=== PATIENT | female | born 1960 | race Two or more races ===

== ENCOUNTER 2024-07-20 06:34 | Inpatient (IN) | payer BC, OTHER ==
[~2024-07-20] VITALS: Ht 162.6 cm; Wt 60.1 kg
--- NOTE | 2024-07-20 06:51 | ED.PDOC ---
History of Present Illness HPI Comments 64-year-old female with no reported PMHx presents with a chief complaint of SOB, back pain, and right lateral chest pain. Patient states that starting at 0200 this morning she started to have an chest pain that began and started to have SOB. Patient denies any coughing or history of any respiratory ailments. Patient is actively vomiting in triage. Time Seen by MD: 06:42 Reviewed Notes: Medications, Allergies Allergies: Coded Allergies: Acetaminophen (Verified Allergy, Unknown, 07/20/24) Hydrocodone (Verified Allergy, Unknown, 07/20/24) Information Source: Patient Mode of Arrival: Ambulatory Severity: Moderate Timing: Hours Duration: Since onset Prehospital treatment: None Past Medical History PAST MEDICAL HISTORY: Denies Surgical History: Denies all surgeries FUEL MANAGEMENT HANDLER History: Denies all FUEL MANAGEMENT HANDLER Hx Family History Family History: Reviewed,noncontributory to illness Social History Smoker: Non-Smoker Alcohol: Denies ETOH Use Drugs: Denies Drug Use Lives In: Home Constitutional: denies: chills, diaphoresis, fatigue, fever, malaise, sweats, weakness, others EENTM: denies: blurred vision, double vision, ear bleeding, ear discharge, ear drainage, ear pain, ear ringing, eye pain, eye redness, hearing loss, mouth pain, mouth swelling, nasal discharge, nose bleeding, nose congestion, nose pain, photophobia, tearing, throat pain, throat swelling, voice changes, others Respiratory: reports: shortness of breath; denies: cough, hemoptysis, orthopnea, SOB at rest, SOB with excertion, stridor, wheezing, others Cardiovascular: reports: chest pain; denies: dizzy spells, diaphoresis, Dyspnea on exertion, edema, irregular heart beat, left arm pain, lightheadedness, palpitations, PND, syncope, others Gastrointestinal: denies: abdomen distended, abdominal pain, blood streaked bowels, constipated, diarrhea, dysphagia, difficulty swallowing, hematemesis, melena, nausea, poor appetite, poor fluid intake, rectal bleeding, rectal pain, vomiting, others Genitourinary: denies: abnormal vagina bleeding, burning, dyspareunia, dysuria, flank pain, frequency, hematuria, incontinence, pain, , vagina discharge, urgency, others Neurological: denies: dizziness, fainting, headache, left sided numbness, left sided weakness, numbness, paresthesia, pre-existing deficit, right sided numbness, right sided weakness, seizure, speech problems, tingling, tremors, weakness, others Musculoskeletal: reports: back pain, muscle pain; denies: gout, joint pain, joint swelling, muscle stiffness, neck pain, others Integumetry: denies: bruises, change in color, change in hair/nails, dryness, laceration, lesions, lumps, rash, wounds, others Allergic/Immunocompromised: denies: Difficulty Healing, Frequent Infections, Hives, Itching, others Hematologic/Lymphatic: denies: anemia, blood clots, easy bleeding, easy bruising, swollen glands, others Endocrine: denies: excessive hunger, excessive sweating, excessive thirst, excessive urination, flushing, intolerance to cold, intolerance to heat, unexplained weight gain, unexplained weight loss, others Psychiatric: denies: anxiety, bipolar disorder, depression, hopeless, panic disorder, schizophrenia, sleepless, suicidal, others All Other Systems: Reviewed and Negative Physical Exam General Appearance: No Apparent Distress, Normal HEENT: Normal ENT Inspection, Pharynx Normal, TMs Normal Neck: Full Range of Motion, Non-Tender, Normal, Normal Inspection Respiratory: Chest Non-Tender, Lungs Clear, No Accessory Muscle Use, No Respiratory Distress, Normal Breath Sounds Cardiovascular: No Edema, No JVD, No Murmur, No Gallop, Normal Peripheral Pulses, Regular Rate/Rhythm Breast Exam: Deferred Gastrointestinal: No Organomegaly, Non Tender, No Pulsatile Mass, Normal Bowel Sounds, Soft Genitalia: Deferred Pelvic: Deferred Rectal: Deferred Extremities: No calf tenderness, Normal capillary refill, Normal inspection, Normal range of motion, Non-tender, No pedal edema Musculoskeletal : Apperance: Normal Neurologic: 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 Was a procedure done?: No Differential Dx Considerations may include: acs, pleurisy, chest wall pain, anxiety, pneumonia, PE, ptx, lung mass, aortic dissection, shingles X-Ray, Labs, Meds, VS Vital Signs Date Time Temp Pulse Resp B/P (MAP) Pulse Ox O2 Delivery O2 Flow Rate FiO2 07/20/24 07:35 75 22 100 Room Air* 0 21 07/20/24 07:35 98.1 75 22 169/86 (113) 100 98.1 07/20/24 06:58 97.5 78 22 147/73 (97) 100 97.5 07/20/24 06:54 79 Lab Test 07/20/24 08:10 07/20/24 07:05 Range/Units Troponin I High Sensitivity 4 4 </=34 ng/L White Blood Count 9.0 4.4-10.8 10^3/uL Red Blood Count 4.79 4.0-5.20 10^6/uL Hemoglobin 13.8 12.2-16.2 g/dL Hematocrit 39.7 36.0-46.0 % Mean Corpuscular Volume 82.9 80.0-100.0 fL Mean Corpuscular Hemoglobin 28.9 28.0-32.0 pg Mean Corpuscular Hemoglobin Concent 34.8 32.0-36.0 g/dL Red Cell Distribution Width 13.4 11.8-14.3 % Platelet Count 350 140-450 10^3/uL Mean Platelet Volume 8.6 6.9-10.8 fL Neutrophils (%) (Auto) 82.3 H 37.0-80.0 % Lymphocytes (%) (Auto) 13.9 10.0-50.0 % Monocytes (%) (Auto) 2.7 0.0-12.0 % Eosinophils (%) (Auto) 0.6 0.0-7.0 % Basophils (%) (Auto) 0.5 0.0-2.0 % Neutrophils # (Auto) 7.4 1.6-8.6 10 ^3/uL Lymphocytes # (Auto) 1.3 0.4-5.4 10 ^3/uL Monocytes # (Auto) 0.2 0-1.3 10 ^3/uL Eosinophils # (Auto) 0.1 0-0.8 10 ^3/uL Basophils # (Auto) 0 0-0.2 10 ^3/uL Nucleated Red Blood Cells 0.0 % Sodium Level 141 136-145 mmol/L Potassium Level 3.4 L 3.5-5.1 mmol/L Chloride Level 108 H 98-107 mmol/L Carbon Dioxide Level 21 20-31 mmol/L Anion Gap 12 5-15 Blood Urea Nitrogen 10 9-23 mg/dL Creatinine 0.73 0.550-1.02 mg/dL Glomerular Filtration Rate Calc 91 >90 mL/min BUN/Creatinine Ratio 13.7 10.0-20.0 Serum Glucose 133 H 74-106 mg/dL Calcium Level 9.5 8.7-10.4 mg/dL Total Bilirubin 1.1 H 0.2-1.0 mg/dL Aspartate Amino Transferase (AST) 20 <34 U/L Alanine Aminotransferase (ALT) 23 7-40 U/L Alkaline Phosphatase 59 46-116 U/L Total Protein 7.5 5.7-8.2 g/dL Albumin 5.0 H 3.2-4.8 g/dL Current Medications Medications (Trade) Dose Ordered Sig/Jana Route Start Time Stop Time Status Last Admin Ketorolac Tromethamine (Toradol Injection) 15 mg ONCE ONCE IV 07/20/24 08:00 07/20/24 08:04 DC 07/20/24 08:26 Time of 1ST Reevaluation: 07:12 Reevaluation 1ST: Unchanged Patient Education/Counseling: Diagnosis, Treatment, Prognosis, Need For Follow Up Family Education/Counseling: No Family Present Comments pt does not have pe on cta. she has no physical findings nor symptoms consistent with aortic dissection. although her cardiac workup is so far, unremarkable, unstable angina is not excluded. pt will need further evaluation and be admitted Departure 1 Departure Time of Disposition: 10:56 Impression: Primary Impression: Unstable angina Disposition: 09 ADMITTED INPATIENT Admit to: Tele Condition: Serious Discharged With: Self Critical Care Note Critical Care Time?: Yes (55 min-critical care time only) Critical care comment: due to concerns for deterioration of patient's condition, the care required my highest level of attention and readiness. i assessed the patient's condition, reviewed relevant documents, communicated with medical personnel, ordered the proper tests and treatments, reassessed for results and response to treatments, spoke to family and consultants and formulated a plan of care Stability Stability form required: No Heart Score Heart Score: Heart Score Response (Comments) Value History Moderate Suspicious 1 EKG Normal 0 Age >65 2 Risk Factors No known risk factors 0 Troponin Normal limit 0 Total 3 I personally scribed for KAREEM DYKES MD ([email or web address]) on 07/20/24 at 06:51. Electronically submitted by Gary Lujan ([email or web address]). KAREEM DYKES MD Jul 20, 2024 06:51
--- NOTE | 2024-07-20 06:56 | ECG ---
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
[2024-07-20] MEDS ORDERED: KETOROLAC TROMETH 30 MG/ML 1ML VIAL IM ONE (07:00)
[2024-07-20 07:33] LABS: Basophils # (auto) 0 10 ^3/uL (0-0.2); Basophils % (auto) 0.5 % (0.0-2.0); Eosinophils # (auto) 0.1 10 ^3/uL (0-0.8); Eosinophils % (auto) 0.6 % (0.0-7.0); Hematocrit 39.7 % (36.0-46.0); Hemoglobin 13.8 g/dL (12.2-16.2); Lymphocytes # (auto) 1.3 10 ^3/uL (0.4-5.4); Lymphocytes % (auto) 13.9 % (10.0-50.0); Mean Corpuscular Hemoglobin 28.9 pg (28.0-32.0); Mean Corpuscular Hgb Conc. 34.8 g/dL (32.0-36.0); Mean Corpuscular Volume 82.9 fL (80.0-100.0); Monocytes # (auto) 0.2 10 ^3/uL (0-1.3); Monocytes % (auto) 2.7 % (0.0-12.0); Neutrophils # (auto) 7.4 10 ^3/uL (1.6-8.6); Neutrophils % (auto) 82.3 % (37.0-80.0); Platelet Count (auto) 350 10^3/uL (140-450); Red Blood Cells 4.79 10^6/uL (4.0-5.20); Red Cell Distribution Width 13.4 % (11.8-14.3)
[2024-07-20 07:35] VITALS: PULSE 75; RESP 22; O2SAT 100
--- NOTE | 2024-07-20 07:40 | DVH ---
CHEST RADIOGRAPH Indication: cp Technique: Single frontal view of the chest was obtained Comparison: None FINDINGS: Lines and Tubes: None Lungs: No focal consolidation. Pleura: No effusion. No pneumothorax. Cardiomediastinal contours: Unremarkable Bones: No acute osseous abnormality. IMPRESSION: 1. No acute cardiopulmonary disease.
[2024-07-20 07:52] LABS: Alanine Aminotransferase 23 U/L (7-40); Alkaline Phosphatase 59 U/L (46-116); Anion Gap 12 (5-15); Aspartate Aminotransferase 20 U/L (<34); BUN/Creatinine Ratio 13.7 (10.0-20.0); Blood Urea Nitrogen 10 mg/dL (9-23); Calcium 9.5 mg/dL (8.7-10.4); Carbon Dioxide 21 mmol/L (20-31); Sodium 141 mmol/L (136-145); Total Protein 7.5 g/dL (5.7-8.2)
[2024-07-20 07:53] LABS: Bilirubin, Total 1.1 mg/dL (0.2-1.0); Chloride 108 mmol/L (98-107); Glucose 133 mg/dL (74-106); Potassium 3.4 mmol/L (3.5-5.1)
--- NOTE | 2024-07-20 08:14 | DVH ---
CLINICAL INFORMATION: Chest pain. TECHNIQUE: Grayscale sonographic imaging of the right upper quadrant of the abdomen was performed, a ssisted by color Doppler techniques. COMPARISON: None FINDINGS: The gallbladder wall measures 2.3 mm in thickness, within normal limits. No stones are s een. Negative reported sonographic flores's sign. The common bile duct measures 4.2 mm in diameter, within normal limits. The liver is normal in size and echotexture. No focal lesions. The pancreas is partly obscured, likely by bowel gas. The visualized portions appear normal. The right kidney measures 10.9 cm. There is no hydronephrosis. Right renal cortical echogenicity a nd cortical thickness are within normal limits. IMPRESSION: 1. No sonographic evidence of acute cholecystitis. 2. No acute findings are seen in the right upper abdomen.
[2024-07-20] MEDS: KETOROLAC TROMETH 30 MG/ML 1ML VIAL IV ONE ×2 (08:26→23:15)
[2024-07-20] MEDS: IOHEXOL 350 MG/ML 100ML IJ ONE (10:23)
--- NOTE | 2024-07-20 10:36 | DVH ---
CT CT ANGIO CHEST CONTRAST INDICATION: r/o pe EXAM DATE: 07/20/2024 10:04 AM COMPARISON: None RADIATION DOSE: CTDIvol: 8.88 mGy, DLP: 199.75 mGy*cm PROCEDURE: Helical CT angiographic images were obtained of the chest with intravenous contrast. Sagi ttal and coronal reconstructions as well as MIPS are provided. Maximum intensity projections performe d (MIPs) were performed for CTA. ADDITIONAL IMAGES / REFORMATS: None All CT scans at this medical facility are performed using dose modulation techniques as appropriate t o a performed exam including the following: Automated exposure control was utilized; adjustment of th e MA and/or KV according to patient size; and use of iterative reconstruction technique. FINDINGS: Bones: Scattered degenerative changes are noted in the visualized osseous structures. Visualized Abdomen: Normal. Chest Wall: Normal. Soft tissues: Normal. Mediastinum: Normal. Heart: Normal. Vessels: No filling defects in the visualized pulmonary arteries including the segmental and subsegme ntal pulmonary arteries. Lymph Nodes: Prominent right perihilar lymph nodes are likely reactive. Pleura: Normal. Airways: Normal. Lung: Normal. Other: None IMPRESSION: No pulmonary embolism in the visualized pulmonary arteries including the segmental and subsegmental p ulmonary arteries.
[2024-07-20] MEDS: ONDANSETRON HCL 4 MG/2 ML VIAL IV ONE (11:10)
[2024-07-20] MEDS: MORPHINE SULFATE INJ 2 MG/ml SYRG IV ONE (11:10)
[2024-07-20] MEDS: MORPHINE SULFATE 4 MG/ML SYR/VIAL IV ONE (11:10)
--- NOTE | 2024-07-20 13:58 | DVHHPRES ---
History of Present Illness Resident Creating Document: MARIELA ADAMS RESIDENT History of Present Illness Patient is a 64-year-old female with past medical history of seasonal bronchial asthma, osteoarthritis presented to the ED with a chief complaint of right upper back pain with vomiting since 2:00 a.m. prior to this admission. The patient stated that she woke up from the sleep due to sudden sharp upper back pain which was 10/10, radiates to the right chest under the breast fold without any aggravating and relieving factors and associated with sweating, shortness of breath and vomiting. The patient denied fever, chills, dizziness, blurred vision, abdominal pain, dysuria, hematuria or any change in bowel and bladder habit. 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 Patient was seen and examined on the bedside. She is alert oriented x3 and on room air. Complaint of dull aching pain in the right upper back which is now 5/10, localized and associated with nausea. Past Medical History Seasonal bronchial asthma, osteoarthritis Past Surgical History Fracture repaired in childhood Family History Hypertension runs in the family, sister was diagnosed with pancreatic cancer recently and Past Social History Lives with girlfriend Smoked marijuana for sleep, nonalcoholic and never tried any other drugs Review of Systems Constitutional: No: Fever, Chills, Sweats, Weakness, Malaise, Other Eyes: No: Pain, Vision change, Conjunctivae inflammation, Eyelid inflammation, Other, Redness ENT: No: Ear pain, Ear discharge, Nose pain, Nose discharge, Nose congestion, Mouth pain, Mouth swelling, Throat pain, Throat swelling, Other Respiratory: No: Cough, Dry, Shortness of breath, SOB with excertion, Wheezing, Hemoptysis, Pleuritic Pain, Sputum, Wheezing, Other Cardiovascular: No: Chest Pain, Palpitations, Orthopnea, Paroxysmal Noc. Dyspnea, Edema, Lt Headedness, Other Gastrointestinal: Nausea; No: Vomiting, Abdominal Pain, Diarrhea, Constipation, Melena, Hematochezia, Other Genitourinary: No Dysuria, No Frequency, No Incontinence, No Hematuria, No Retention, No Other Musculoskeletal: back pain; No: other, neck pain, shoulder pain, arm pain, hand pain, leg pain, foot pain Skin: No: Rash, Lesions, Jaundice, Bruising, Other Neurological: No: Weakness, Numbness, Incoordination, Change in speech, Confusion, Seizures, Other Allergies: Coded Allergies: Acetaminophen (Verified Allergy, Unknown, 07/20/24) Hydrocodone (Verified Allergy, Unknown, 07/20/24) Medications Current Medications Medications Dose Ordered Sig/Jana Route Start Time Stop Time Status Last Admin Dose Admin Nitroglycerin 0.4 mg Q5MINP PRN SL 07/20/24 14:00 UNV Morphine Sulfate 2 mg Q30M PRN IV 07/20/24 14:00 UNV Exam Vital Signs Vital Signs Date Time Temp Pulse Resp B/P (MAP) Pulse Ox O2 Delivery O2 Flow Rate FiO2 07/20/24 12:00 72 07/20/24 12:00 98.2 18 166/90 (115) 98 98.2 07/20/24 07:35 Room Air* 0 21 Exam Physical examination: General Appearance: Alert, Oriented X3, Cooperative, mild distress HEENT: Atraumatic, PERRLA, EOMI, Mucous membrane moist/pink Respiratory: Clear to auscultation, Normal air movement Cardiovascular: Regular rate, Normal S1, Normal S2, No murmurs, no chest wall tenderness Abdominal: Normal bowel sounds, Soft, No tenderness, No hepatospenomegaly, No masses Extremities: No clubbing, No cyanosis, No edema, Normal pulses, No tenderness/swelling Skin: No rashes, No breakdown, No significant lesion Neuro: Normal gait, Normal speech, Strength at 5/5 X4 ext, Normal tone, Sensation intact, grossly intact cranial nerves Psych/Mental Status: Mental status NL, Mood NL Labs/Xrays Labs Test 07/20/24 08:10 07/20/24 07:05 Range/Units Troponin I High Sensitivity 4 </=34 ng/L White Blood Count 9.0 4.4-10.8 10^3/uL Red Blood Count 4.79 4.0-5.20 10^6/uL Hemoglobin 13.8 12.2-16.2 g/dL Hematocrit 39.7 36.0-46.0 % Mean Corpuscular Volume 82.9 80.0-100.0 fL Mean Corpuscular Hemoglobin 28.9 28.0-32.0 pg Mean Corpuscular Hemoglobin Concent 34.8 32.0-36.0 g/dL Red Cell Distribution Width 13.4 11.8-14.3 % Platelet Count 350 140-450 10^3/uL Mean Platelet Volume 8.6 6.9-10.8 fL Neutrophils (%) (Auto) 82.3 H 37.0-80.0 % Lymphocytes (%) (Auto) 13.9 10.0-50.0 % Monocytes (%) (Auto) 2.7 0.0-12.0 % Eosinophils (%) (Auto) 0.6 0.0-7.0 % Basophils (%) (Auto) 0.5 0.0-2.0 % Neutrophils # (Auto) 7.4 1.6-8.6 10 ^3/uL Lymphocytes # (Auto) 1.3 0.4-5.4 10 ^3/uL Monocytes # (Auto) 0.2 0-1.3 10 ^3/uL Eosinophils # (Auto) 0.1 0-0.8 10 ^3/uL Basophils # (Auto) 0 0-0.2 10 ^3/uL Nucleated Red Blood Cells 0.0 % Sodium Level 141 136-145 mmol/L Potassium Level 3.4 L 3.5-5.1 mmol/L Chloride Level 108 H 98-107 mmol/L Carbon Dioxide Level 21 20-31 mmol/L Anion Gap 12 5-15 Blood Urea Nitrogen 10 9-23 mg/dL Creatinine 0.73 0.550-1.02 mg/dL Glomerular Filtration Rate Calc 91 >90 mL/min BUN/Creatinine Ratio 13.7 10.0-20.0 Serum Glucose 133 H 74-106 mg/dL Calcium Level 9.5 8.7-10.4 mg/dL Total Bilirubin 1.1 H 0.2-1.0 mg/dL Aspartate Amino Transferase (AST) 20 <34 U/L Alanine Aminotransferase (ALT) 23 7-40 U/L Alkaline Phosphatase 59 46-116 U/L Total Protein 7.5 5.7-8.2 g/dL Albumin 5.0 H 3.2-4.8 g/dL Assessment/Plan Assessment/Plan Assessment and plan: # Chest pain rule out ACS # Possible unstable angina # Possible musculoskeletal skeletal pain in the back due to heavy lifting # Newly diagnosed hypertension # Ruled out pulmonary embolism - Initial EKG revealed sinus rhythm with prolonged NE interval, troponins are unremarkable - CxR showed no acute cardiopulmonary condition. - CT angio excluded the possibility of Pulmonary embolism - Ordered echo - Ibuprofen 400 mg Q 8 p.r.n. - Monitor blood pressure # Hypokalemia - Replenished # History of osteoarthritis - Ibuprofen 400 mg Q 8 p.r.n. # PUD prophylaxis - Protonix 40 mg p.o. daily # DVT prophylaxis - Lovenox 40 mg sc daily Goal of care discussed with the patient for more than 20 minutes full code Plan discussed with Dr. Nelson Plan discussed with: Patient, Other (spouse) My Orders Orders - MARIELA ADAMS RESIDENT Procedure Category Date Status Time Admit ADMIT 07/20/24 Transmitted 13:53 Nitroglycerin PHA 07/20/24 Logged Sublingual (Ntrostat 14:00 Morphine Sulfate PHA 07/20/24 Logged Injection 14:00 Notify Of Changes NISHA 07/20/24 In Process From Base 13:53 Immigration Lawyer For NISHA 07/20/24 In Process 24 Hours 13:53 Code Status CODE 07/20/24 Transmitted 13:53 Cardiac DIET 07/20/24 Transmitted Diet-2gna,Lofat,Lochol Dinner Potassium Effervesent PHA 07/20/24 Logged Tab (Klor-Con/Ef) 14:00 Urinalysis LAB 07/20/24 Logged 13:53 Echo 2d Mode Cardiac US 07/20/24 Logged DOP 13:53 Drug Screen LAB 07/20/24 Logged 13:56 Comprehensive LAB 07/20/24 Transmitted Hepatitis Panel 13:56 Date of Service: Jul 20, 2024 Billing Provider: ASIA NELSON MD Common Visit Codes: [id number] INP/OBS CARE (HIGH) MARIELA ADAMS RESIDENT Jul 20, 2024 13:58
[2024-07-20] MEDS ORDERED: NITROGLYCERIN 0.4 MG SL TAB SL PRN (14:00)
[2024-07-20] MEDS ORDERED: MORPHINE SULFATE INJ 2 MG/ml SYRG IV PRN (14:00)
[2024-07-20] MEDS: POTASSIUM EFFERVESENT TAB 25 MEQ PO ONE (14:16)
[2024-07-20 14:48] LABS: Cholesterol 268 mg/dL (< 200); HDL Cholesterol 36 mg/dL (40-59); LDL Cholesterol 188 mg/dL (< 100); Triglycerides 259 mg/dL (< 150)
[2024-07-20 14:54] LABS: Hepatitis B Core Total AB Negative (Negative)
[2024-07-20] MEDS: IBUPROFEN 400 MG TAB PO PRN (15:15)
[2024-07-20 16:07] VITALS: BP 136/84; PULSE 77; RESP 18; TEMP 97.8; O2SAT 98
[2024-07-20 16:23] LABS: Hepatitis A Total Antibody Positive (Negative)
[2024-07-20 16:27] LABS: Hepatitis B Surface Antibody Positive (Negative); Hepatitis B Surface Antigen Negative (Negative); Hepatitis C Antibody Negative (Negative)
[2024-07-20 17:00] VITALS: BP 134/74; PULSE 76; RESP 15; TEMP 98.4; O2SAT 98
[2024-07-20] MEDS: MORPHINE SULFATE INJ 2 MG/ml SYRG IV PRN (17:15)
[2024-07-20] MEDS: ONDANSETRON HCL 4 MG/2 ML VIAL IV PRN (17:16)
[2024-07-20 18:15] VITALS: BP 136/84; PULSE 77; RESP 18; TEMP 97.8; O2SAT 98
[2024-07-20 20:00] VITALS: PULSE 67; RESP 18; O2SAT 98
[2024-07-20 21:25] VITALS: BP 135/81; PULSE 83; RESP 18; TEMP 98.2; O2SAT 98
[2024-07-21] VITALS (8 sets, daily range): BP systolic 115–137; BP diastolic 56–84; PULSE 67–97; RESP 17–19; TEMP 97.5–98.4; O2SAT 96–99
[2024-07-21] MEDS: MELATONIN 5 MG TAB PO ONE (01:05)
[2024-07-21] MEDS: PANTOPRAZOLE 40 MG TAB PO SCH (05:59)
[2024-07-21] MEDS: ENOXAPARIN SOD 40 MG/0.4 ML SYRINGE SC SCH (09:33)
[2024-07-21 10:07] LABS: Urine Bacteria None Seen /hpf (None Seen)
[2024-07-21 10:14] LABS: Urine Blood TRACE /uL (Negative); Urine Clarity Clear (Clear); Urine Color Yellow (Yellow); Urine Mucus FEW (None Seen); Urine Protein, UAD TRACE (Negative); Urine Specific Gravity 1.022 (1.001-1.035); Urine Squamous Epithelial Cell FEW /hpf (<5); Urine Urobilinogen Normal (Negative); Urine WBC 23 /HPF (0-5)
[2024-07-21 10:29] LABS: Opiate Scree,Urine Neg (NEGATIVE)
[2024-07-21 10:32] LABS: Amphetamine Screen, Urine Neg (NEGATIVE); Barbiturate Scree,Urine Neg (NEGATIVE); Benzodiazephine Screen, Urine Neg (NEGATIVE); Cannabinoid Screen, Urine Pos (NEGATIVE); Cocaine Screen, Urine Neg (NEGATIVE); Phencyclidine Screen, Urine Neg (NEGATIVE)
--- NOTE | 2024-07-21 14:12 | DVHSR ---
APPROVED REPORT EXAM: Two-dimensional and M-mode echocardiogram with Doppler and color Doppler. Blood Pressure: 122/68 mmHg INDICATION Chest Pain RISK FACTORS Height: 5'4, Weight: 132 DIMENSIONS LVDd4.3 (3.8-5.7cm)LA (2D)3.4 (1.9-4.0cm)Aortic Root2.9 (2.0-3.7cm) LVDs2.8 (2.5-4.0cm)LA (MM) (1.9-4.0cm)Aortic Cusp Exc1.3 (1.5-2.0cm) EF (%) 60.0 (55-70%)Rt. Atrium3.4 (1.9-4.0cm)Asc. Aorta cm IVSd0.8 (0.7-1.1cm)RV (D)3.4 (1.8-2.4cm) PWd1.0 (0.7-1.1cm) Mitral Valve MitralMitral Stenosis E wave0.87m/sMV Mean GR.mmHg A wave0.87m/sMV Peak GR.112mmHg E/A ratio1.02D MVAcm2 DECEL [id number] 1/2 Timems Aortic Valve Aortic ValveAortic Stenosis V11.03m/Elza Mean GR.7mmHg V21.73m/Elza Peak GR.12mmHg LVOT Diameter2.1 (1.8-2.4cm)Doppler AVA2.06cm2 Other Information Quality : Technically LimitedRhythm : Conclusion Sinus rhythm. Normal chamber sizes. Valves are normal. EF of 60% with normal RV function. Unremarkable Doppler. No pericardial effusion masses or vegetations.
--- NOTE | 2024-07-21 15:29 | DVHPN2 ---
Subjective Admitted for back and chest pain with N/V Changes from previous H/P or p: Changes Eyes: No Pain, No Vision change, No Conjunctivae inflammation, No Eyelid inflammation, No Other, No Redness ENT: No Ear pain, No Ear discharge, No Nose pain, No Nose discharge, No Nose congestion, No Mouth pain, No Mouth swelling, No Throat pain, No Throat swelling, No Other Cardiovascular: No Chest Pain, No Palpitations, No Orthopnea, No Paroxysmal Noc. Dyspnea, No Edema, No Lt Headedness, No Other Respiratory: No Cough, No Dry, No Shortness of breath, No SOB with excertion, No Wheezing, No Hemoptysis, No Pleuritic Pain, No Sputum, No Other Gastrointestinal: Nausea; No Vomiting, No Abdominal Pain, No Diarrhea, No Constipation, No Melena, No Hematochezia, No Other Genitourinary: No Dysuria, No Frequency, No Incontinence, No Hematuria, No Retention, No Other Musculoskeletal: No other, No neck pain, No shoulder pain, No arm pain; back pain; No hand pain, No leg pain, No foot pain Skin: No Rash, No Lesions, No Jaundice, No Bruising, No Other Objective Vitals Vital Signs Date Time Temp Pulse Resp B/P (MAP) Pulse Ox O2 Delivery O2 Flow Rate FiO2 07/21/24 12:45 98.3 68 17 137/66 (89) 97 98.3 07/21/24 08:00 Room Air* 0 21 Intake/Output Intake and Output 07/21/24 07:00 Intake Total 1120 ml Balance 1120 ml Intake Oral 1120 ml # Voids 1 General Appearance: Alert, Oriented X3, Cooperative Lungs: Clear to auscultation, Normal air movement Cardiovascular: Regular rate, Normal S1, Normal S2 Abdomen: Normal bowel sounds, Soft, No tenderness Extremities: No edema Medications Current Medications Medications Dose Ordered Sig/Jana Route Start Time Stop Time Status Last Admin Dose Admin Nitroglycerin 0.4 mg Q5MINP PRN SL 07/20/24 14:00 Morphine Sulfate 2 mg Q30M PRN IV 07/20/24 14:00 Ibuprofen 400 mg Q8HP PRN PO 07/20/24 14:30 Hold 07/20/24 15:15 400 MG Pantoprazole Sodium 40 mg DAILY@0600 PO 07/21/24 06:00 07/21/24 05:59 40 MG Enoxaparin Sodium 40 mg DAILY SC 07/21/24 10:00 Morphine Sulfate 1 mg Q6HP PRN IV 07/20/24 17:00 07/21/24 09:35 1 MG Ondansetron HCl 4 mg Q8HPRN PRN IV 07/20/24 17:00 07/21/24 09:34 4 MG Laboratory Results Laboratory Tests 07/20/24 07:05 Urinalysis Test 07/21/24 10:00 Urine Color Yellow (Yellow) Urine Clarity Clear (Clear) Urine pH 6.0 (5.0-9.0) Urine Specific [place] 1.022 (1.001-1.035) Urine Protein Trace (Negative) H Urine Ketones 4+ (Negative) H Urine Blood Trace /uL (Negative) H Urine Nitrite Negative (Negative) Urine Bilirubin Negative (Negative) Urine Urobilinogen Normal mg/dL (Negative) Urine Leukocyte Esterase 3+ /uL (Negative) Urine RBC 7 /hpf (0 - 4) Urine Microscopic WBC 23 /HPF (0-5) H Urine Squamous Epithelial Cells Few /hpf (<5) Urine Bacteria None seen /hpf (None Seen) Urine Mucus Few (None Seen) Urine Glucose Normal mg/dL (Normal) Assessment/Plan Assessment/Plan Chest pain due to musculoskeletal pain Asthma OA Hypokalemia Mixed hyperlipidemia Asymptomatic bacte PLAN: Start Lipitor Echo: Normal Cardiology consult Aspirin UA: No UTI, no need for antibiotics PPI Lovenox Full code Advanced directives discussed x 18 minutes Plan discussed with: Patient My Orders Orders - CHARLES NEIL MD Procedure Category Date Status Time * Cardiology Consult CONS 07/21/24 Transmitted 12:52 Date of Service: Jul 21, 2024 Billing Provider: CHARLES NEIL MD Common Visit Codes: [id number] INP/OBS CARE(HIGH) Secondary Visit Codes: [id number] CARE PLAN 30 MINUTES CHARLES NEIL MD Jul 21, 2024 15:29
--- NOTE | 2024-07-21 16:02 | DVHINCON2 ---
Date Seen: Jul 21, 2024 Referring Physician Latoya Reason for Consultation Chest Pain History of Present Illness 64-year-old female with PMH for asthma, osteoarthritis presents to the hospital with upper back pain radiating to her chest. Patient states she was asleep when she was suddenly awoken in the middle of the night with significant scapular sharp chest pain that seemed to be radiating around to her chest area, associated with nausea diaphoresis. Patient states pain was at times intermittent at times chronic, positional when laying on her right side worsen. Patient also had some shortness of breath, denies any palpitations, fever, chills. Upon evaluation in the ER patient noted to have negative trending troponins, CXR negative for acute cardiopulmonary disease. CT angio of the chest done rule out PE. EKG reviewed and shows normal sinus rhythm at 79 beats per minute, no acute ST and T-wave abnormalities noted. Past Medical History As stated above Denies past cardiac history Past Surgical History Denies previous surgeries Family History: Parents G8 MOTHER G8 FATHER Family History Denies pertinent family cardiac history. Social History Occasional marijuana use, denies tobacco or any other illicit drug use. Allergies: Coded Allergies: Acetaminophen (Verified Allergy, Unknown, 07/20/24) Hydrocodone (Verified Allergy, Unknown, 07/20/24) Current Medications Current Medications Medications (Trade) Dose Ordered Sig/Jana Route PRN Reason Start Time Stop Time Status Last Admin Pantoprazole Sodium (Protonix Tablet) 40 mg DAILY@0600 PO 07/21/24 06:00 07/21/24 05:59 Enoxaparin Sodium (Lovenox) 40 mg DAILY SC 07/21/24 10:00 Morphine Sulfate 1 mg Q6HP PRN IV MODERATE PAIN (4-6 PAIN SCALE) 07/20/24 17:00 07/21/24 09:35 Ondansetron HCl (Zofran) 4 mg Q8HPRN PRN IV NAUSEA / VOMITING 07/20/24 17:00 07/21/24 09:34 Atorvastatin Calcium (Lipitor) 40 mg HS PO 07/21/24 22:00 Aspirin 81 mg DAILY PO 07/22/24 10:00 Review of Systems Constitutional: No: Fever, Chills, Sweats, Weakness, Malaise, Other Eyes: No: Pain, Vision change, Conjunctivae inflammation, Eyelid inflammation, Other, Redness ENT: No: Ear pain, Ear discharge, Nose pain, Nose discharge, Nose congestion, Mouth pain, Mouth swelling, Throat pain, Throat swelling, Other Respiratory: No: Cough, Dry, Shortness of breath, SOB with exertion, Wheezing, Hemoptysis, Pleuritic Pain, Sputum, Wheezing, Other Cardiovascular: ; No: Chest Pain Palpitations, Orthopnea, Paroxysmal Noc. Dyspnea, Edema, Lt Headedness, Other Gastrointestinal: No: Nausea, Vomiting, Abdominal Pain, Diarrhea, Constipation, Melena, Hematochezia, Other Genitourinary: No Dysuria, No Frequency, No Incontinence, No Hematuria, No Retention, No Other Musculoskeletal: neck pain; No: other, shoulder pain, arm pain, back pain, hand pain, leg pain, foot pain Skin: No: Rash, Lesions, Jaundice, Bruising, Other Neurological: Other (Dizziness, headache.); No: Weakness, Numbness, Incoordination, Change in speech, Confusion, Seizures Vital Signs Vital Signs Date Time Temp Pulse Resp B/P (MAP) Pulse Ox O2 Delivery O2 Flow Rate FiO2 07/21/24 12:45 98.3 68 17 137/66 (89) 97 98.3 07/21/24 08:00 Room Air* 0 21 Physical Exam General appearance: Patient is well-developed, well-nourished, in no acute distress. HEENT: Exam shows: Normocephalic, atraumatic, PERRLA, EOMI Neck: Supple, no bruits Chest: Equal chest excursion bilaterally. Breath sounds normal-no rales or wheezes. Heart: Rhythm: Regular rate; no murmur or gallop Abdomen: Exam shows: Soft, nontender, nondistended Musculoskeletal: No clubbing, no cyanosis, no lower extremity edema Dermatology: Skin warm, moist. Neurological: Exam shows: Alert and oriented x4, normal speech Available prior records, labs, EKG, rhythm strips reviewed and interpreted Labs/Diagnostic Data Labs Test 07/21/24 10:00 07/20/24 08:10 07/20/24 07:05 Range/Units Urine Color Yellow Yellow Urine Clarity Clear Clear Urine pH 6.0 5.0-9.0 Urine Specific [place] 1.022 1.001-1.035 Urine Protein Trace H Negative Urine Ketones 4+ H Negative Urine Blood Trace H Negative /uL Urine Nitrite Negative Negative Urine Bilirubin Negative Negative Urine Urobilinogen Normal Negative mg/dL Urine Leukocyte Esterase 3+ Negative /uL Urine RBC 7 0 - 4 /hpf Urine Microscopic WBC 23 H 0-5 /HPF Urine Squamous Epithelial Cells Few <5 /hpf Urine Bacteria None seen None Seen /hpf Urine Mucus Few None Seen Urine Glucose Normal Normal mg/dL Urine Opiates Screen Neg NEGATIVE Urine Fentanyl Screen Neg NEGATIVE Urine Barbiturates Screen Neg NEGATIVE Urine Phencyclidine Screen Neg NEGATIVE Urine Amphetamines Screen Neg NEGATIVE Urine Benzodiazepines Screen Neg NEGATIVE Urine Cocaine Screen Neg NEGATIVE Urine Cannabinoids Screen Pos NEGATIVE Troponin I High Sensitivity 4 </=34 ng/L Triglycerides Level 259 H < 150 mg/dL Cholesterol Level 268 H < 200 mg/dL LDL Cholesterol 188 H < 100 mg/dL HDL Cholesterol 36 L 40-59 mg/dL Vitamin B12 Level 663 211-911 pg/mL Vitamin D 25-Hydroxy 27.2 L 30.0-100 ng/mL Thyroid Stimulating Hormone (TSH) 1.55 0.55-4.78 uIU/mL White Blood Count 9.0 4.4-10.8 10^3/uL Red Blood Count 4.79 4.0-5.20 10^6/uL Hemoglobin 13.8 12.2-16.2 g/dL Hematocrit 39.7 36.0-46.0 % Mean Corpuscular Volume 82.9 80.0-100.0 fL Mean Corpuscular Hemoglobin 28.9 28.0-32.0 pg Mean Corpuscular Hemoglobin Concent 34.8 32.0-36.0 g/dL Red Cell Distribution Width 13.4 11.8-14.3 % Platelet Count 350 140-450 10^3/uL Mean Platelet Volume 8.6 6.9-10.8 fL Neutrophils (%) (Auto) 82.3 H 37.0-80.0 % Lymphocytes (%) (Auto) 13.9 10.0-50.0 % Monocytes (%) (Auto) 2.7 0.0-12.0 % Eosinophils (%) (Auto) 0.6 0.0-7.0 % Basophils (%) (Auto) 0.5 0.0-2.0 % Neutrophils # (Auto) 7.4 1.6-8.6 10 ^3/uL Lymphocytes # (Auto) 1.3 0.4-5.4 10 ^3/uL Monocytes # (Auto) 0.2 0-1.3 10 ^3/uL Eosinophils # (Auto) 0.1 0-0.8 10 ^3/uL Basophils # (Auto) 0 0-0.2 10 ^3/uL Nucleated Red Blood Cells 0.0 % Sodium Level 141 136-145 mmol/L Potassium Level 3.4 L 3.5-5.1 mmol/L Chloride Level 108 H 98-107 mmol/L Carbon Dioxide Level 21 20-31 mmol/L Anion Gap 12 5-15 Blood Urea Nitrogen 10 9-23 mg/dL Creatinine 0.73 0.550-1.02 mg/dL Glomerular Filtration Rate Calc 91 >90 mL/min BUN/Creatinine Ratio 13.7 10.0-20.0 Serum Glucose 133 H 74-106 mg/dL Hemoglobin A1c 5.4 <5.7 % A1C Calcium Level 9.5 8.7-10.4 mg/dL Total Bilirubin 1.1 H 0.2-1.0 mg/dL Aspartate Amino Transferase (AST) 20 <34 U/L Alanine Aminotransferase (ALT) 23 7-40 U/L Alkaline Phosphatase 59 46-116 U/L Total Protein 7.5 5.7-8.2 g/dL Albumin 5.0 H 3.2-4.8 g/dL Hepatitis A Antibody Total Positive H Negative Hepatitis B Surface Antigen Negative Negative Hepatitis B Surface Antibody Positive H Negative Hepatitis B Core Total Antibody Negative Negative Hepatitis C Antibody Negative Negative Assessment * Chest pain - atypical in nature. Troponins negative. EKG negative for acute ischemic changes. Echo with normal EF. ACS ruled out. CT chest reviewed, negative for significant coronary calcifications. * Hypokalemia - monitoring replace electrolytes * Elevated blood pressure - episodic, trending stable at this time. Continue outpatient monitoring. * Hyperlipidemia-continue statin. Case Discussed with Dr Estrada. Patient's chest pain atypical. ACS ruled out. Normal echo. No other episodes of chest pain endorse. There is no further cardiac work-up indicated at this time. Plan of care discussed with patient, if continues to have episodes of symptoms recommend outpatient follow up for possible coronary CTA. Thank you for allowing us to participate in this patient's care. Stable from Cardiology standpoint for DC. Will sign off. Critical care, time spent: 40 minutes This medical document was created using an electronic medical record system with voice recognition software and computerized dictation system. Although this document has been carefully reviewed, there might still be some phonetic and typographical errors. Occasional wrong-word or ``sound-alike substitutions may have occurred due to the inherent limitations of voice recognition software. These areas are purely typographical due to imperfections of the software programs and do not reflect any compromise in the patient's medical care. Please read the chart carefully and recognize, using context, where these substitutions have occurred. Thank you for allowing me to participate in the management of this patient. The treatment plan was discussed with and agreed upon by patient/family including requesting consultants and ordering of imaging/procedures. Plan discussed with: Patient NYHA Physical activity limitations: NA Date of Service: Jul 21, 2024 Billing Provider: LELE MATHUR Cardiology Common Codes: 62046-VNIOOMY INP/OBS CARE (High), 81223-[id number] CARE 30-74 MIN LELE MATHUR Jul 21, 2024 16:02
[2024-07-21] MEDS: ASPirin 81 mg TAB PO ONE (16:05)
[2024-07-21] MEDS: ATORVASTATIN 20 MG TAB PO SCH (21:19)
[2024-07-21] MEDS ORDERED: MELATONIN 5 MG TAB PO ONE (22:00)
[2024-07-22 05:00] VITALS: BP 128/67; PULSE 84; RESP 17; TEMP 98.3; O2SAT 97
[2024-07-22 08:00] VITALS: PULSE 66; PULSE 75; RESP 16; O2SAT 98
[2024-07-22 08:30] VITALS: BP 119/75; PULSE 75; RESP 16; TEMP 98; O2SAT 98
[2024-07-22] MEDS: ASPirin 81 mg TAB PO SCH (09:49)
[2024-07-22 12:25] VITALS: BP 122/65; PULSE 70; RESP 17; TEMP 98.3; O2SAT 96
[2024-07-22] MEDS ORDERED: ATOR-507 PO (12:25)
--- NOTE | 2024-07-22 12:41 | DVHDS2 ---
Discharge Summary Date of Admission Jul 20, 2024 at 13:53 Date of Discharge: Jul 22, 2024 Labs/Diagnostic Data: Laboratory Results Test 07/21/24 10:00 07/20/24 08:10 07/20/24 07:05 Urine Color Yellow (Yellow) Urine Clarity Clear (Clear) Urine pH 6.0 (5.0-9.0) Urine Specific [place] 1.022 (1.001-1.035) Urine Protein Trace (Negative) Urine Ketones 4+ (Negative) Urine Blood Trace /uL (Negative) Urine Nitrite Negative (Negative) Urine Bilirubin Negative (Negative) Urine Urobilinogen Normal mg/dL (Negative) Urine Leukocyte Esterase 3+ /uL (Negative) Urine RBC 7 /hpf (0 - 4) Urine Microscopic WBC 23 /HPF (0-5) Urine Squamous Epithelial Cells Few /hpf (<5) Urine Bacteria None seen /hpf (None Seen) Urine Mucus Few (None Seen) Urine Glucose Normal mg/dL (Normal) Urine Opiates Screen Neg (NEGATIVE) Urine Fentanyl Screen Neg (NEGATIVE) Urine Barbiturates Screen Neg (NEGATIVE) Urine Phencyclidine Screen Neg (NEGATIVE) Urine Amphetamines Screen Neg (NEGATIVE) Urine Benzodiazepines Screen Neg (NEGATIVE) Urine Cocaine Screen Neg (NEGATIVE) Urine Cannabinoids Screen Pos (NEGATIVE) Troponin I High Sensitivity 4 ng/L (</=34) Triglycerides Level 259 mg/dL (< 150) Cholesterol Level 268 mg/dL (< 200) LDL Cholesterol 188 mg/dL (< 100) HDL Cholesterol 36 mg/dL (40-59) Vitamin B12 Level 663 pg/mL (211-911) Vitamin D 25-Hydroxy 27.2 ng/mL (30.0-100) Thyroid Stimulating Hormone (TSH) 1.55 uIU/mL (0.55-4.78) White Blood Count 9.0 10^3/uL (4.4-10.8) Red Blood Count 4.79 10^6/uL (4.0-5.20) Hemoglobin 13.8 g/dL (12.2-16.2) Hematocrit 39.7 % (36.0-46.0) Mean Corpuscular Volume 82.9 fL (80.0-100.0) Mean Corpuscular Hemoglobin 28.9 pg (28.0-32.0) Mean Corpuscular Hemoglobin Concent 34.8 g/dL (32.0-36.0) Red Cell Distribution Width 13.4 % (11.8-14.3) Platelet Count 350 10^3/uL (140-450) Mean Platelet Volume 8.6 fL (6.9-10.8) Neutrophils (%) (Auto) 82.3 % (37.0-80.0) Lymphocytes (%) (Auto) 13.9 % (10.0-50.0) Monocytes (%) (Auto) 2.7 % (0.0-12.0) Eosinophils (%) (Auto) 0.6 % (0.0-7.0) Basophils (%) (Auto) 0.5 % (0.0-2.0) Neutrophils # (Auto) 7.4 10 ^3/uL (1.6-8.6) Lymphocytes # (Auto) 1.3 10 ^3/uL (0.4-5.4) Monocytes # (Auto) 0.2 10 ^3/uL (0-1.3) Eosinophils # (Auto) 0.1 10 ^3/uL (0-0.8) Basophils # (Auto) 0 10 ^3/uL (0-0.2) Nucleated Red Blood Cells 0.0 % Sodium Level 141 mmol/L (136-145) Potassium Level 3.4 mmol/L (3.5-5.1) Chloride Level 108 mmol/L (98-107) Carbon Dioxide Level 21 mmol/L (20-31) Anion Gap 12 (5-15) Blood Urea Nitrogen 10 mg/dL (9-23) Creatinine 0.73 mg/dL (0.550-1.02) Glomerular Filtration Rate Calc 91 mL/min (>90) BUN/Creatinine Ratio 13.7 (10.0-20.0) Serum Glucose 133 mg/dL (74-106) Hemoglobin A1c 5.4 % A1C (<5.7) Calcium Level 9.5 mg/dL (8.7-10.4) Total Bilirubin 1.1 mg/dL (0.2-1.0) Aspartate Amino Transferase (AST) 20 U/L (<34) Alanine Aminotransferase (ALT) 23 U/L (7-40) Alkaline Phosphatase 59 U/L (46-116) Total Protein 7.5 g/dL (5.7-8.2) Albumin 5.0 g/dL (3.2-4.8) Hepatitis A Antibody Total Positive (Negative) Hepatitis B Surface Antigen Negative (Negative) Hepatitis B Surface Antibody Positive (Negative) Hepatitis B Core Total Antibody Negative (Negative) Hepatitis C Antibody Negative (Negative) Other Laboratory Tests 07/20/24 07:05 Brief Hx & Hospital Course: Final diagnoses: Chest pain due to musculoskeletal pain Mixed hyperlipidemia Asthma OA Hypokalemia Asymptomatic bacteriuria No UTI 64-year-old female who was admitted for chest pain which was on the right side associated with right upper back pain Troponins were negative EKG was normal Cardiology saw the patient recommended no further interventions or workup since it is musculoskeletal Her lipid panel was high however with the triglycerides level of 259 and total cholesterol 268 and LDL of 188 and HDL of 36 She was educated about low-fat diet She was started on Lipitor She has asymptomatic bacteriuria, does not need treatment She will be discharged home on Lipitor 40 mg daily Follow up as an outpatient as soon as possible Condition at Discharge: Stable Final Diagnosis/Problems List Chest pain due to musculoskeletal pain Mixed hyperlipidemia Asthma OA Hypokalemia Asymptomatic bacteriuria No UTI Discharge Disposition: Home SNF Discharge Will this Physician continue t: No Discharge Instruct/Medications Diet: Cardiac 2g Na,low cholest Activity: No Restrictions, As Tolerated Follow Up/Referral: PCP as soon as possible Medications: Lipitor 40 mg daily Discharge Statement: "Patient was advised to return to the ER or call 911 if any headaches, dizziness, shortness of breath, chest pain, abdominal pain, bleeding, fevers, or worsening of medical condition. Patient was counseled about treatment plan, medications, possible side effects, patientverbalized understanding. All questions were answered to the best of my ability. This discharge took greater then 30 minutes in planning, reviewing documentation, counseling the patient, and discussing with other team members." ASSESSMENT ASSESSMENT Assessment Chest pain due to musculoskeletal pain Mixed hyperlipidemia Asthma OA Hypokalemia Asymptomatic bacteriuria No UTI Date of Service: Jul 22, 2024 Billing Provider: CHARLES NEIL MD Common Visit Codes: 45915-ITR/OBS DISCH DAY >30min CHARLES NEIL MD Jul 22, 2024 12:41
[2024-07-22 14:21] VITALS: TEMP 36.8
== END 2024-07-22 14:45 | disposition home or self-care (01) | DRG 313 ==
LOC: ER 06:34 → OVERFLOW 13:53 → TELE-WESTW 18:14
PROVIDERS: ATTEND Internal Medicine
DX: R07.89 Other chest pain (principal); I20.0 Unstable angina; E78.2 Mixed hyperlipidemia; E87.6 Hypokalemia; J45.909 Unspecified asthma, uncomplicated; R82.71 Bacteriuria; M54.89 Other dorsalgia; M19.90 Unspecified osteoarthritis, unspecified site; Z79.899 Other long term (current) drug therapy; Z88.8 Allergy status to other drugs, medicaments and biological substances; Z80.0 Family history of malignant neoplasm of digestive organs; Z82.49 Family history of ischemic heart disease and other diseases of the circulatory system
CPT/HCPCS: 36415; 71045; 71275; 76705; 80053; 80061; 80307; 81001; 82306; 82607; 83036; 84443; 84484; 85025; 86704; 86706; 86708; 86803; 87340; 93005; 93306; 96374; 96375; 99291; G0378; J1885; J2405